=== PATIENT | female | born 1990 | race American Indian/Alaskan Native ===

== ENCOUNTER 2020-01-30 04:58 | Emergency (ER) | payer SELFPAY ==
[2020-01-30] MEDS ORDERED: methylPREDNISolone Sod Succinate 125 MG/2 ML INJ IV ONE (05:05)
[2020-01-30] MEDS ORDERED: FAMOTIDINE 20 MG/2 ML INJ IV ONE (05:05)
[2020-01-30] MEDS ORDERED: EPINEPHrine/PF 1 MG/1 ML INJ SUB-Q ONE (05:05)
[2020-01-30] MEDS ORDERED: diphenhydrAMINE 50 MG/ML VIAL ONE (05:08)
--- NOTE | 2020-01-30 05:14 | Emergency Department Report ---
ED General Adult HPI - General Chief complaint: Allergic Reaction Stated complaint: ALLERGIC REACTION PUI?: No Time Seen by Provider: 01/30/20 05:05 Source: patient Mode of arrival: Ambulatory Limitations: No Limitations - History of Present Illness Initial comments: This is a 29-year-old female who presents with throat itching cough pain upper lip swelling 30 minutes after eating [employer]. She has some other allergic reaction to another food 1 month ago. She took 75 mg of Benadryl prior to arrival. She denies shortness of breath, wheezing, fainting. No current itching or rashes. 1 month ago with previous reaction she did have hives. -: Sudden, hour(s) (1) Location: face Consistency: constant Improves with: none Worsens with: none Associated Symptoms: other (Throat itching cough lip swelling) - Related Data Previous Rx's Medication Instructions Recorded Last Taken Type EPINEPHrine [Epipen] 0.3 mg IJ ONCE PRN #1 auto.injct 01/30/20 Unknown Rx Famotidine [Acid Controller] 1 tab PO BID 3 Days #6 tablet 01/30/20 Unknown Rx Prednisone [predniSONE 10 mg 10 mg PO .TAPER #1 tab.ds.pk 01/30/20 Unknown Rx (6-Day Pack, 21 Tabs)] diphenhydrAMINE [Benadryl CAP] 25 mg PO TID 3 Days #9 capsule 01/30/20 Unknown Rx Allergies Allergy/AdvReac Type Severity Reaction Status Date / Time No Known Allergies Allergy Unverified 01/30/20 05:05 ED Review of Systems ROS: Stated complaint: ALLERGIC REACTION Other details as noted in HPI Comment: All other systems reviewed and negative Constitutional: denies: fever, malaise Respiratory: cough. denies: shortness of breath, wheezing Gastrointestinal: denies: abdominal pain, nausea, vomiting ED Past Medical Hx - Past Medical History Previous Medical History?: No - Surgical History Past Surgical History?: No - Social History Smoking Status: Current Every Day Smoker Substance Use Type: None - Medications Home Medications: Home Medications Medication Instructions Recorded Confirmed Last Taken Type EPINEPHrine [Epipen] 0.3 mg IJ ONCE PRN #1 auto.injct 01/30/20 Unknown Rx Famotidine [Acid Controller] 1 tab PO BID 3 Days #6 tablet 01/30/20 Unknown Rx Prednisone [predniSONE 10 mg 10 mg PO .TAPER #1 tab.ds.pk 01/30/20 Unknown Rx (6-Day Pack, 21 Tabs)] diphenhydrAMINE [Benadryl CAP] 25 mg PO TID 3 Days #9 capsule 01/30/20 Unknown Rx ED Physical Exam - General Limitations: No Limitations General appearance: alert, other (Persistent cough, drooling, restless) - Head Head exam: Present: atraumatic, normocephalic - Eye Eye exam: Present: normal appearance - ENT ENT exam: Present: other (Mild swelling upper lip, no soft tissue swelling in the posterior oropharynx) - Neck Neck exam: Present: normal inspection - Respiratory Respiratory exam: Present: normal lung sounds bilaterally. Absent: respiratory distress, wheezes, rales, rhonchi - Cardiovascular Cardiovascular Exam: Present: regular rate, normal rhythm, normal heart sounds. Absent: systolic murmur, diastolic murmur, rubs, gallop - GI/Abdominal GI/Abdominal exam: Present: soft, normal bowel sounds. Absent: distended, tenderness, guarding, rebound - Extremities Exam Extremities exam: Present: normal inspection - Neurological Exam Neurological exam: Present: alert, oriented X3 - Psychiatric Psychiatric exam: Present: normal affect, normal mood - Skin Skin exam: Present: warm, dry, intact, normal color. Absent: rash ED Course Vital Signs 01/30/20 01/30/20 01/30/20 05:00 05:05 05:06 Temperature 98.2 F Pulse Rate 98 H 81 71 Respiratory 20 18 18 Rate Blood Pressure 140/101 Blood Pressure 160/89 [Left] O2 Sat by Pulse 99 99 Oximetry 01/30/20 01/30/20 01/30/20 05:30 05:45 06:15 Temperature Pulse Rate 73 76 79 Respiratory 16 14 16 Rate Blood Pressure Blood Pressure 151/107 132/84 116/61 [Left] O2 Sat by Pulse 98 99 98 Oximetry 01/30/20 06:45 Temperature Pulse Rate 80 Respiratory 14 Rate Blood Pressure Blood Pressure 120/59 [Left] O2 Sat by Pulse 96 Oximetry - Reevaluation(s) Reevaluation #1: 01/30/20 05:37 On reexamination, patient is sleeping comfortably with mouth closed. Has nasal congestion. Coughing subsided. Mild lip swelling noted. ED Medical Decision Making - Medical Decision Making Acute anaphylactic reaction to likely food. Again to the bedside immediately. I asked charge nurse to administer epinephrine subcu, IV famotidine and IV Solu- Medrol. Patient was placed on monitor. Patient symptoms improved. No evidence of shock. My colleague provide appropriate disposition once patient is symptom-free. I anticipate discharge. I have provided referral to spd tech. Prescriptions i nclude EpiPen, famotidine, diphenhydramine and prednisone taper Critical Care Time: Yes Critical care attestation.: If time is entered above; I have spent that time in minutes in the direct care of this critically ill patient, excluding procedure time. 40 minutes of critical care time excluding procedures were used in the care of the patient. I reviewed electronic record. I discussed treatment plan with the nursing team members at the bedside. I came immediately to the bedside upon patient's arrival. veterinary assistant technician informed me that critically ill patient was in the room. I was concerned for airway compromise and potential anaphylactic shock. Patient required multiple interventions and reassessments. ED Disposition Clinical Impression: Anaphylaxis due to food Disposition: DC-01 TO HOME OR SELFCARE Is pt being admited?: No Does the pt Need Aspirin: No Condition: Stable Instructions: Anaphylaxis (ED) Prescriptions: Famotidine [Acid Controller] 1 tab PO BID 3 Days #6 tablet diphenhydrAMINE [Benadryl CAP] 25 mg PO TID 3 Days #9 capsule EPINEPHrine [Epipen] 0.3 mg IJ ONCE PRN #1 auto.injct PRN Reason: severe allergic reaction Prednisone [predniSONE 10 mg (6-Day Pack, 21 Tabs)] 10 mg PO .TAPER #1 tab.ds.pk Referrals: JUAN CARLOS WINTER MD [Referring] - 3-5 Days KRISH CUEVAS MD [Referring] - 3-5 Days Forms: Work/School Release Form(ED)
[2020-01-30 07:07] VITALS: BP 120/59
== END 2020-01-30 08:07 | disposition home or self-care (01) ==
LOC: ED 04:58
DX: T78.00XA Anaphylactic reaction due to unspecified food, initial encounter (principal); F17.200 Nicotine dependence, unspecified, uncomplicated; Z79.899 Other long term (current) drug therapy
CPT/HCPCS: 82962; 96372; 96374; 96375; 99284; J0171; J2930; J1200